=== PATIENT | female | born 1990 | race Caucasian/White ===

== ENCOUNTER → 2016-05-22 | Outpatient (REF) | payer OTHER ==
[2016-05-22 18:58] LABS: ALBUMIN 4.1 GM/DL (3.2-5.2); ALBUMIN/GLOBULIN RATIO 1.05 (1.00-1.93); BILIRUBIN,DIRECT 0.2 MG/DL (0.0-0.2); BILIRUBIN,TOTAL 0.8 MG/DL (0.2-1.0)
== END ==
LOC: M SFHCLERA 11:00
PROVIDERS: ATTEND Family Medicine
DX: Z51.81 Encounter for therapeutic drug level monitoring (principal)

== ENCOUNTER → 2016-09-21 | Outpatient (REF) | payer OTHER | LOC: M SFHCLERA 10:51 | PROVIDERS: ATTEND Nurse Practitioner Family | DX: J30.2 Other seasonal allergic rhinitis (principal) ==

== ENCOUNTER → 2016-11-08 | Outpatient (REF) | payer OTHER | LOC: M SFHCLERA 09:46 | PROVIDERS: ATTEND Nurse Practitioner Family | DX: J02.9 Acute pharyngitis, unspecified (principal) ==

== ENCOUNTER → 2017-02-11 | Outpatient (REF) | payer OTHER | LOC: M SFHCLERA 09:34 | PROVIDERS: ATTEND Family Medicine | DX: E66.01 Morbid (severe) obesity due to excess calories (principal) ==

== ENCOUNTER 2017-03-28 14:45 | Emergency (ER) | payer OTHER ==
[~2017-03-28] VITALS: Ht 170.2 cm; Wt 122.3 kg
--- NOTE | 2017-03-28 21:10 | REPUSA ---
Clinical history: Pain, swelling. Findings: The common femoral, superficial femoral, popliteal, and other deep venous structures compre ss normally and demonstrate normal color Doppler flow. Normal venous waveforms with augmentation are seen. Impression: No evidence of deep vein thrombosis in the left femoral popliteal venous system.
[2017-03-28] MEDS ORDERED: NAPR500T PO (22:00)
[2017-03-28 22:26] VITALS: BP 124/72
== END 2017-03-28 22:27 | disposition home or self-care (01) ==
LOC: M ED 14:45
DX: M79.662 Pain in left lower leg (principal)

== ENCOUNTER → 2017-06-25 | Outpatient (REF) | payer OTHER | LOC: M SFHCLERA 20:16 | DX: J02.9 Acute pharyngitis, unspecified (principal) ==

== ENCOUNTER → 2018-01-22 | Outpatient (REF) | payer OTHER ==
[2018-01-22 17:55] LABS: ESTIMATED AVERAGE GLUCOSE 123 MG/DL (60-110); HEMOGLOBIN A1c 5.9 %
== END ==
LOC: M SFHCLERA 10:00
DX: R73.02 Impaired glucose tolerance (oral) (principal)

== ENCOUNTER 2018-03-04 17:59 | Emergency (ER) | payer OTHER ==
[2018-03-04 20:37] LABS: BEDSIDE GLUCOSE 93 MG/DL (70-105)
[2018-03-04] MEDS: FLUCONAZOLE 50MG TABLET PO (21:01)
== END 2018-03-04 21:05 | disposition home or self-care (01) ==
LOC: M ED 17:59
DX: B35.4 Tinea corporis (principal)
CPT/HCPCS: 99283

== ENCOUNTER 2018-06-21 03:06 | Emergency (ER) | payer OTHER ==
[~2018-06-21] VITALS: Ht 170.2 cm; Wt 118.2 kg
[~2018-06-21 03:06] MED LIST: DIFL150T PO; NAPR-50 PO
[2018-06-21 04:59] LABS: INFLUENZA A AMPLIFICATION NEGATIVE (NEGATIVE); INFLUENZA B AMPLIFICATION NEGATIVE (NEGATIVE)
[2018-06-21 05:41] VITALS: BP 111/70
[2018-06-21] MEDS ORDERED: ZITHTAB PO (06:16)
[2018-06-21] MEDS ORDERED: PRED20TA PO (06:16)
--- NOTE | 2018-06-21 10:30 | REP ---
PA and lateral chest: There are no comparisons. The lung sanford are clear. The cardiac size is normal. The jasmin, mediastinum, and skeletal structures are unremarkable. Impression: Negative PA and lateral chest. Electronically Signed by Dexter Jacobs MD 06/21/2018 07:53 A
== END 2018-06-21 06:25 | disposition home or self-care (01) ==
LOC: M ED 03:06
DX: J40 Bronchitis, not specified as acute or chronic (principal)

== ENCOUNTER → 2019-04-27 | Outpatient (REF) | payer OTHER ==
[~2019-04-27] MED LIST changes: -NAPR-50 PO; +NAPR-837 PO; +PRED20TA PO; +ZITHTAB PO
== END ==
LOC: M SFHCLERA 09:29
PROVIDERS: ATTEND Physician Assistant
DX: R50.9 Fever, unspecified (principal)

== ENCOUNTER → 2019-10-05 | Outpatient (REF) | payer BC | LOC: EEVIPCON 17:36 → M SFHCLERA 17:36 | PROVIDERS: ATTEND Physician Assistant | DX: L02.214 Cutaneous abscess of groin (principal) ==

== ENCOUNTER → 2020-10-31 | Outpatient (REF) | payer BC | LOC: M SFHCLERA 13:21 | PROVIDERS: ATTEND Nurse Practitioner Family | DX: J02.9 Acute pharyngitis, unspecified (principal) ==

== ENCOUNTER → 2023-12-23 | Outpatient (REF) | payer OTHER ==
[2023-12-23 21:56] LABS: APPEARANCE, URINE MANUAL HAZY (CLEAR); BILIRUBIN, URINE MANUAL OBSCURED (NEGATIVE); COLOR, URINE MANUAL ORANGE (YELLOW); GLUCOSE, URINE (UA) MANUAL NEGATIVE (NEGATIVE); KETONE, URINE MANUAL OBSCURED mg/dL (NEGATIVE); PH,URINE MAN OBSCURED UNITS (5.0 - 7.0); PROTEIN, URINE MANUAL OBSCURED mg/dL (NEGATIVE); SPECIFIC GRAVITY,URINE MANUAL 1.028 (1.002-1.035); UROBILINOGEN, URINE MANUAL OBSCURED mg/dl (NORMAL)
[2023-12-23 21:57] LABS: BLOOD URINE MANUAL POSITIVE (NEGATIVE); LEUKOCYTE ESTERASE, URINE MAN POSITIVE (NEGATIVE); NITRITE, URINE MANUAL OBSCURED (NEGATIVE)
[2023-12-23 22:24] LABS: BACTERIA, URINE LARGE AMOUNT; HYALINE CAST, URINE NONE SEEN /lpf (0-1); SQUAMOUS EPITHELIAL CELL URINE LARGE AMOUNT /hpf (SMALL AMT)
== END ==
LOC: M LAB REF 21:27
PROVIDERS: ATTEND Physician Assistant Medical
DX: N39.0 Urinary tract infection, site not specified (principal)